=== PATIENT | male | born 1975 | race African-American/Black ===

== ENCOUNTER 2025-07-03 13:23 | Emergency (ER) | payer OTHER ==
[~2025-07-03] VITALS: Ht 175.3 cm; Wt 84.0 kg
[2025-07-03 13:30] VITALS: O2SAT 96
[2025-07-03 15:16] LABS: BASOPHILS % 0.3 % (0.0-2.0); EOSINOPHILS % 0.6 % (0.0-5.0); HEMATOCRIT. 34.9 % (42.0-52.0); HEMOGLOBIN. 11.6 g/dL (14.0-18.0); LYMPHOCYTES % 11.1 % (20.0-50.0); MEAN PLATELET VOLUME 7.4 fl (7.4-10.4); MONOCYTES % 7.3 % (2.0-8.0); NEUTROPHILS % 80.7 % (40.0-76.0); PLATELET 216 x1000/uL (130-400); RED BLOOD CELL COUNT 4.30 mill/uL (4.7-6.1); RED CELL DISTRIBUTION WIDTH 14.5 % (11.6-14.6)
[2025-07-03 15:28] LABS: CREATININE 1.2 mg/dL (0.6-1.3); UREA NITROGEN BLOOD < 5 mg/dL (9-23)
[2025-07-03 15:31] LABS: INR 1.0
[2025-07-03] MEDS: MORPHINE SULFATE 4 MG/ML INJ (FOR IV/IM USE) IV ONE (15:39)
[2025-07-03] MEDS: HYDROMORPHONE HCL/PF 1MG/ML INJ IV NR (17:32)
[2025-07-03 20:18] VITALS: BP 131/72; PULSE 101; RESP 19; TEMP 37.5; O2SAT 97
== END 2025-07-03 21:00 | disposition short-term general hospital (02) ==
LOC: ER 13:23 → CANBEDREQ 16:23 → ER 21:00
DX: S82.831A Other fracture of upper and lower end of right fibula, initial encounter for closed fracture (principal); S82.832A Other fracture of upper and lower end of left fibula, initial encounter for closed fracture; D64.9 Anemia, unspecified; X58.XXXA Exposure to other specified factors, initial encounter; Y93.89 Activity, other specified; Y92.89 Other specified places as the place of occurrence of the external cause; Y99.8 Other external cause status
CPT/HCPCS: 80048; 85025; 85610; 85730; 86850; 86900; 86901; 36415; 73590; 73610; 73630; 96374; 96375; 99285; J1171; J2270; Z7610